=== PATIENT | male | born 1960 | race Caucasian/White ===

== ENCOUNTER 2018-04-27 05:41 | Inpatient (IN) | payer OTHER ==
[2018-04-27] MEDS ORDERED: TRANEXAMIC ACID 1,000 MG in NS 100 ML IV ONE (06:08)
[2018-04-27] MEDS ORDERED: ROPIVACAINE 0.2% 80 MG, EPINEPHrine 0.2 MG, KETOROLAC TROMETHAMINE 30 MG in SYRINGE 0 ML IU ONE (06:08)
[2018-04-27] MEDS ORDERED: PREGABALIN 150 MG CAP PO ONE (06:08)
[2018-04-27] MEDS ORDERED: ACETAMINOPHEN 500 MG TAB PO ONE (06:08)
[2018-04-27] MEDS ORDERED: ceFAZolin 2 GM/DEXTROSE 100 ML IV ONE (06:08)
[2018-04-27] MEDS ORDERED: LR 1,000 ML IV SCH ×2 (06:08→10:30)
[2018-04-27] MEDS ORDERED: LR 1,000 ML IV ONE (06:09)
[2018-04-27] MEDS ORDERED: BUPIVACAINE/EPI 0.5% 30 ML SDV ONE ×2 (06:21→07:09)
[2018-04-27] MEDS ORDERED: BACITRACIN 50,000 UNITS/10 ML SYR IRR ONE (06:22)
[2018-04-27] MEDS ORDERED: POLYMYXIN B SULFATE 500,000 UNIT/10 ML SYR IRR ONE (06:22)
--- NOTE | 2018-04-27 07:07 | PDANEPAE ---
ANE Past Medical History - Cardiovascular History Hx Hypertension: Yes Hx Arrhythmias: No Hx Chest Pain: No Hx Coronary Artery / Peripheral Vascular Disease: No Hx CHF / Valvular Disease: No Hx Palpitations: No - Pulmonary History Hx COPD: No Hx Asthma/Reactive Airway Disease: No Hx Recent Upper Respiratory Infection: No Hx Oxygen in Use at Home: No Hx Sleep Apnea: No Sleep Apnea Screening Result - Last Documented: Negative - Neurologic History Hx Cerebrovascular Accident: No Hx Seizures: No Hx Dementia: No - Endocrine History Hx Diabetes: No - Renal History Hx Renal Disorders: No - Liver History Hx Hepatic Disorders: No - Neurological & Psychiatric Hx Hx Neurological and Psychiatric Disorders: No Neurological / Psychiatric History Comment: ANXIETY - Cancer History Hx Cancer: No - Congenital Disorder History Hx Congenital Disorders: No - GI History Hx Gastrointestinal Disorders: No - Other Health History Other Health History: NEG - Chronic Pain History Chronic Pain: Yes (R SHOULDER) - Surgical History Prior Surgeries: R SHOULDER REPAIR. KNEE SCOPE R. TESTICULAR REPAIR X2 ANE Review of Systems Review of Systems: - Exercise capacity METS (RN): 4 METS ANE Patient History - Allergies Allergies/Adverse Reactions: No Known Allergies Allergy (Verified 04/02/18 13:43) - Home Medications Home Medications: ALPRAZolam [Xanax 0.5 MG (*)] 0.5 mg PO TID PRN 04/02/18 [Last Taken 04/26/18] Allopurinol [Allopurinol 100 MG (*)] 500 mg PO DAILY 04/02/18 [Last Taken 04:30] Atenolol [Tenormin 100 mg (*)] 100 mg PO BID 04/02/18 [Last Taken 04/27/18 04:30 ] Atorvastatin Calcium [Lipitor 10 mg (*)] 10 mg PO DAILY 04/02/18 [Last Taken 04:30] Gabapentin [Neurontin 300 MG (*)] 600 mg PO TID 04/02/18 [Last Taken 04/27/18 04 :30] amLODIPine BESYLATE/BENAZEPRIL [Lotrel 10-40 mg Capsule] 1 each PO DAILY [Last Taken 04/26/18] - NPO status NPO Since - Liquids (Date): 04/27/18 NPO Since - Liquids (Time): 04:30 NPO Since - Solids (Date): 04/26/18 NPO Since - Solids (Time): 19:00 - Smoking Hx Smoking Status: Former smoker ANE Labs/Vital Signs - Vital Signs Blood Pressure: 124/85 Heart Rate: 53 Respiratory Rate: 13 O2 Sat (%): 96 Height: 180.34 cm Weight: 95.254 kg ANE Physical Exam - Airway Neck exam: FROM Mallampati Score: Class 2 Mouth exam: normal dental/mouth exam - Pulmonary Pulmonary: no respiratory distress - Cardiovascular Cardiovascular: regular rate and rhythym - ASA Status ASA Status: II ANE Anesthesia Plan Anesthesia Plan: general endotracheal anesthesia Regional Anesthesia: single shot NB
[2018-04-27] MEDS ORDERED: PROPOFOL 200 MG/20 ML VIAL ONE (07:14)
[2018-04-27] MEDS ORDERED: MIDAZOLAM 2 MG/2 ML VIAL ONE (07:14)
[2018-04-27] MEDS ORDERED: fentaNYL 100 MCG/2 ML INJ ONE (07:14)
[2018-04-27] MEDS ORDERED: ROCURONIUM 100 MG/10 ML VIAL ONE (07:15)
[2018-04-27] MEDS ORDERED: LIDOCAINE 2% 100 MG/5 ML SYR ONE (07:15)
[2018-04-27] MEDS ORDERED: DEXAMETHASONE 4 MG/ML VIAL ONE ×2 (07:15)
--- NOTE | 2018-04-27 07:20 | PDHPUP ---
History & Physical Update H&P update statement: This history and physical update is based on an assessment of the patient which was completed after admission or registration (within 24 hours), but prior to the surgery/procedure. no change H&P update: no change in patient's condition since H&P completed (no change)
[2018-04-27] MEDS ORDERED: PHENYLEPHRINE HCL 100 MCG/ML SYR ONE (08:23)
[2018-04-27] MEDS ORDERED: ACETAMINOPHEN 500 MG TAB PO PRN (08:51)
[2018-04-27] MEDS ORDERED: MEPERIDINE 25 MG/0.5 ML AMP IVP PRN (08:51)
[2018-04-27] MEDS ORDERED: oxyCODONE IR 5 MG TAB PO PRN ×2 (08:51→12:46)
[2018-04-27] MEDS ORDERED: HYDROCODONE/APAP 5/325 TAB PO PRN ×2 (08:51→10:13)
[2018-04-27] MEDS ORDERED: NALOXONE HCL 0.4 MG/ML INJ IVP PRN (08:51)
[2018-04-27] MEDS ORDERED: ALBUTEROL 3 ML DEYVIAL IH PRN (08:51)
[2018-04-27] MEDS ORDERED: ONDANSETRON 4 MG/2 ML VIAL IVP PRN ×2 (08:51→10:13)
[2018-04-27] MEDS ORDERED: fentaNYL 100 MCG/2 ML INJ IVP PRN (08:51)
[2018-04-27] MEDS ORDERED: SUGAMMADEX SODIUM 200 MG/2 ML VIAL IVP ONE (09:04)
[2018-04-27] MEDS ORDERED: ONDANSETRON 4 MG/2 ML VIAL ONE (09:08)
--- NOTE | 2018-04-27 10:07 | POSTANESTH ---
Post Anesthetic Evaluation Cardiovascular Status: Similar to Pre-Op Cond Respiratory Status: Similar to Pre-op Cond. Level of Consciousness/Mental Status: Mildly Sleepy, Arousable Pain Control: Adequate, Prn Tx Ordered Nausea/Vomiting Control: Adequate, Prn Tx Ordered Complications Possibly Related to Anesthesia: None Noted
[2018-04-27] MEDS ORDERED: ACETAMINOPHEN 325 MG TAB PO PRN (10:13)
--- NOTE | 2018-04-27 11:03 | GOP ---
[f rep st] OPERATIVE REPORT DATE OF OPERATION: SURGEON: Nicola Browne MD ANESTHESIOLOGIST: Mica Holguin PREOPERATIVE DIAGNOSIS: Right shoulder glenohumeral osteoarthritis. POSTOPERATIVE DIAGNOSIS: Right shoulder glenohumeral osteoarthritis. PROCEDURE PERFORMED: Right total shoulder arthroplasty. FINDINGS: SPECIMENS: Include excised humeral head. ESTIMATED BLOOD LOSS: About 75 cc. INDICATIONS: The patient is a 58-year-old male who had end-stage [id number] right shoulder glenohu meral osteoarthritis. He has history of anterior shoulder reconstruction for instability years ago. He struggled to regain good motion. He has had a tight shoulder, he has tried appropriate conservat jose measures, currently has limited motion, pain, and poor function of his right upper extremity due to his shoulder arthritis. X-rays show [id number] osteoarthritis. MRI shows some cuff tendinosis, but he does have an intact cuff. There is some subluxation of the long head biceps, grade 4 cartila ge loss of both humeral head and glenoid. DESCRIPTION OF PROCEDURE: The patient was taken to the operating room, and while supine, Dr. Marc rubin provided a scalene block under ultrasound guidance. He received 2 g of IV Ancef, as well as tranex amic acid. He was placed under general anesthetic with endotracheal intubation. His head was suppor cy in a Lee headend technician and he was moved to the right side of the table so I could extend his a rm, and the right shoulder and arm were prepped and draped free with chlorhexidine in the usual fashi on. I used an anterior deltopectoral incision. He had a previous incision in the axillary fold. I moved my incision a bit lateral so I was not too close to that incision. The deltopectoral interval was i dentified. I retracted the deltoid laterally, pectoralis medially, exposed the humeral head. There was quite a bit of scar given his prior surgery and he had very limited external rotation. I identif ied the biceps tendon distally and tenodesed it into the surrounding tissues and released it just abo ve the tenodesis suture. I then later removed the intra-articular portion of the long head biceps. I used the cautery vertically through the subscapularis and capsule, this was very thick and I dissec cy thick capsule off the underside of this anterior tissue to mobilize the subscapularis, so it was a free and mobile motor unit, and I placed 2 tag sutures in the edge of the subscapularis tendon. I extended this incision up into the interval so that I could expose the joint. With external rotation , I was able to zach an appropriate neck cut in about 20 degrees of retroversion and I made a saw cut to remove the head. I removed rimming osteophytes at the base of the neck. I was able to then rele ase the inferior capsule, bring the humerus up out of the wound, and enter the canal with an awl. I reamed up to a 12 and a 12 broach was a good fit. I then placed glenoid rim retractors and exposed t he glenoid. I sized the glenoid at a 52. I drilled the a central deep PEG hole for the bone ingrowt h PEG and then 3 more peripheral PEG holes. The 52 was a good fit. This was irrigated and the diffe rent PEG holes cleaned out. I used a small bit of methylmethacrylate in the peripheral pegs, leaving the central bone ingrowth PEG free of cement, and the 52 was a nice fit and was very stable. I then went back to the humerus and drilled multiple anterior humeral neck holes so that I passed num erous sutures #2 FiberWire. I then press-fit the size 12 Global Advantage Porocoat standard stem. T his was an excellent snug fit in the proximal humerus. I did trial reductions. I chose a 56 head Ec centric, x18 mm, directed the majority of the head superiorly, and secured this over the Michel taper fit and reduced the shoulder. It had appropriate stability. I irrigated the joint. I infiltrated a joint cocktail. I mattressed the sutures in the anterior humeral neck through the subscapularis to do a subscapularis repair and closed the interval with [id number] sutures of #2 FiberWire as wel l. Antibiotic irrigation was used. A second dose of tranexamic acid was given. I reapproximated th e deltopectoral interval with 0 Vicryl, subcutaneous tissue was closed with 2-0 Monocryl, and the ski n with a running subcuticular stitch of Quill suture. I used tissue glue, Telfa, and Tegaderm. He w as placed in a sling. COMPLICATIONS: There were no complications. DRAINS: No drains. COUNTS: All counts were correct. DISPOSITION: The patient was taken in stable condition to recovery. My surgical dental assistant was a [facility] necessity for this total shoulder arthroplasty. SUMMARY OF COMPONENTS: This is a [employer] Advantage system. The stem is a size 12 [employer] Ad vantage Porocoat press-fit standard stem, size 12. The humeral component is a [employer] [place] PEG daryl oid Premieron crosslink polyethylene with a central bone ingrowth PEG. The head is a Hyphen 8 Advantag e Eccentric head, 56 mm x 18 mm. /[id number]/MODL
[2018-04-27] MEDS: ACETAMINOPHEN 325 MG TAB PO PRN ×2 (12:52→17:27)
[2018-04-27] MEDS: KETOROLAC 30 MG/1 ML SDV IVP SCH ×2 (12:52→17:28)
--- NOTE | 2018-04-27 14:23 | PDMN ---
Medical Necessity Medical necessity: Pt meets inpt criteria per MD order and [facility] [place] [place] S-[id number], Shoulder Arthroplasty, IP only surg list. 58 y/o w/R shoulder osteoarthritis admitted for R TSA and psot-op care.
[2018-04-27] MEDS: ceFAZolin 2 GM/DEXTROSE 100 ML IV SCH ×2 (14:43→20:39)
[2018-04-27] MEDS ORDERED: CEPACOL LOZENGE PO ONE (15:30)
[2018-04-27] MEDS ORDERED: CEPACOL LOZENGE PO PRN (15:31)
[2018-04-27] MEDS: GABAPENTIN 300 MG CAP PO SCH ×2 (17:26→20:38)
[2018-04-27] MEDS: ATENOLOL 100 MG TAB PO SCH (20:36)
[2018-04-27] MEDS: DOCUSATE SODIUM 100 MG CAP PO SCH (20:38)
[2018-04-27] MEDS: TEMAZEPAM 15 MG CAP PO PRN ×2 (20:38→21:36)
[2018-04-28] MEDS ORDERED: MELATONIN 3 MG TAB PO PRN (00:30)
[2018-04-28] MEDS ORDERED: ALPRAZolam 0.5 MG TAB PO PRN (00:30)
[2018-04-28] MEDS: KETOROLAC 30 MG/1 ML SDV IVP SCH ×2 (01:03→05:41)
--- NOTE | 2018-04-28 08:35 | SOAPPROG ---
SOAP Progress Note Assessment/Plan: Assessment: 04/28/18 R TSA, xray fine, pain controlled Plan: 04/28/18 08:33 d/c home after PT, oxy, celebrex, tyl, will set up out patient PT Objective: Vital Signs Temp Pulse Resp BP Pulse Ox 36.3 C 59 L 16 124/70 H 97 04/28/18 07:23 04/28/18 07:23 04/28/18 07:23 04/28/18 07:23 04/28/18 07:23 04/27/18 04/28/18 04/29/18 05:59 05:59 05:59 Intake Total 4700 Output Total 2950 Balance 1750 ICD10 Worksheet Patient Problems: Problems Problem Status Onset Osteoarthritis of right shoulder Acute - ICD10 Problem Qualifiers (1) Osteoarthritis of right shoulder
[2018-04-28] MEDS ORDERED: ALLOPURINOL 100 MG TAB PO SCH (09:00)
[2018-04-28] MEDS ORDERED: ATORVASTATIN CALCIUM 10 MG TAB PO SCH (09:00)
[2018-04-28] MEDS ORDERED: BENAZEPRIL HCL 20 MG TAB PO SCH (09:00)
--- NOTE | 2018-04-28 09:30 | ASMTLACE ---
LACE Length of stay for Answers: 2 days current admission Acuity / Level of Answers: Yes Care: Did the patient have an inpatient admission? Comorbidities - select Answers: Opioid dependence all that apply / Chronic pain Other Notes: HTN # of Emergency department Answers: 0 visits in the last 6 months Social determinants Answers: Mental health diagnosis (anxiety, depression, pers onality disorders, etc.) Score: 13 Date Signed: 04/28/2018 09:30 AM Electronically Signed By:THAD Schilling
[2018-04-28] MEDS: DOCUSATE SODIUM 100 MG CAP PO SCH (09:40)
[2018-04-28] MEDS: ATENOLOL 100 MG TAB PO SCH (09:40)
[2018-04-28 09:43] VITALS: BP 127/78
[2018-04-28] MEDS: GABAPENTIN 300 MG CAP PO SCH (09:44)
--- NOTE | 2018-04-28 11:18 | ASMTCMCOM ---
CM Note CM Note Notes: Pt had planned surgery, MD rec outpatient therapy. No CM d/c needs identified. Date Signed: 04/28/2018 11:17 AM Electronically Signed By:THAD Schilling
== END 2018-04-28 11:17 | disposition home or self-care (01) | DRG 483 ==
LOC: F3N 05:41 → OBSVTOIN 10:18 → F3N 10:52
PROVIDERS: ADMIT Orthopaedic Surgery; ATTEND Orthopaedic Surgery
PROC: 0RRJ0JZ Replacement of Right Shoulder Joint with Synthetic Substitute, Open Approach (ICD-10-PCS; principal; 2018-04-27 07:15)
DX: M19.011 Primary osteoarthritis, right shoulder (principal); I10 Essential (primary) hypertension; F41.9 Anxiety disorder, unspecified; Z87.891 Personal history of nicotine dependence
CPT/HCPCS: 97165-GO; C1713; J0171; J0690; J1100; J1885; J2001; J2250; J2370; J2405; J2704; J2795; J3010